=== PATIENT | male | born 1975 | race Caucasian/White ===

== ENCOUNTER 2023-07-04 08:45 | Emergency (ER) | payer OTHER, SELFPAY ==
[2023-07-04 08:51] VITALS: BP 164/100; PULSE 67; TEMP 36.6; O2SAT 99; BMI 27.1
--- NOTE | 2023-07-04 09:19 | CT_ITS ---
The [address] [address] Patient Name: ADRIEL HUSSEIN MRN: [id number] date: 1975 Sex: M Assigned Patient Location: ER Current Patient Location: ER Accession/Order Number: [id number] Exam Date: 07/04/2023 09:27 Report Date: 07/04/2023 09:49 At the request of: TATIANA BERKOWITZ Procedure: CT head/brain wo con EXAM: CT head/brain wo con HISTORY: Right facial paresthesia, partial right facial weakness COMPARISON: None. TECHNIQUE: Contiguous transaxial images were obtained from skull base to vertex without administration of intravenous contrast. Dose reduction: mA and/or kV are were adjusted by automated exposure control software based upon patients height and weight. FINDINGS: There is no focal scalp soft tissue swelling or acute calvarial fracture. The visualized globes and orbits are grossly normal. Visualized paranasal sinuses are clear. Bilateral mastoid air cells are clear. The ventricles and sulci are normal and symmetric bilaterally. There is no intraparenchymal hemorrhage, extraaxial fluid collection, mass lesion, or acute large territory ischemia by noncontrast CT. CT/CT head/brain wo con IMPRESSION: 1. No acute intracranial hemorrhage or acute large territory ischemia by noncontrast CT. If the patient has a focal neurologic deficit or there is clinical suspicion for acute cerebrovascular accident, brain MRI would be recommended for further evaluation. Electronically authenticated by: MIGUEL MARSHALL Date: 07/04/2023 09:49
--- NOTE | 2023-07-04 09:20 | ED_ITS ---
HPI - Neuro Symptoms/Deficit General Chief Complaint: Ear Stated Complaint: RIGHT EAR PAIM, FACIAL NUMBNESS Time Seen by Provider: 07/04/23 08:55 Source: patient Mode of arrival: walk-in History of Present Illness HPI Narrative: 3 days ago the patient developed slight difficulty winking with the right eye and noted that his smile was asymmetric on the right. He also developed increased tearing of the right eye. he admitted to some pain to the right ear - mostly to the tragus. he also had some decreased sensation - numbness in the right jaw. His brother had Almanzar's palsy in the past and the patient is concerned that he might have it now. No recent injury or illness. No fever or chills. No URI symptoms. Related Data Previous Rx's ?Medication ?Instructions ?Recorded acyclovir 400 mg tablet 400 mg PO Q4H #7 tabs 07/04/23 prednisone 20 mg tablet 40 mg (2 x 20 mg) PO DAILY 7 days 07/04/23 #14 tabs Allergies Allergy/AdvReac Type Severity Reaction Status Date / Time acetaminophen Allergy Unknown Verified 07/04/23 08:59 codeine Allergy Unknown Verified 07/04/23 08:59 hydrocodone [From [place]] Allergy Unknown Verified 07/04/23 08:59 NSAIDS (Non-Steroidal Allergy Unknown Verified 07/04/23 08:59 Anti-Inflamma morphine AdvReac Unknown Verified 07/04/23 08:59 oxycodone [From Percocet] AdvReac Unknown Verified 07/04/23 08:59 Exam Narrative Exam Narrative: Nurses notes and vital signs reviewed and patient is not hypoxic. afebrile General: Well-appearing and in no apparent distress. Skin: Warm, dry, no pallor noted. No rash to face or neck. Head: Normocephalic, atraumatic. There is very slight deficit when the patient wrinkles the forehead and smiles - slight asymmetry on the right. Neck: Supple, non-tender. Eye: Pupils are equal, round and EOMI. No scleral icterus. Ears, Nose, Mouth, and Throat: TM are clear, no posterior oropharynx erythema or nasal mucosal hypertrophy, uvula is mid-line Oral mucosa is moist Cardiovascular: Regular Rate and Rhythm without murmur, gallop or rub. Respiratory: No accessory muscle use or respiratory distress. Lungs are clear to auscultation, no wheezing, rales or rhonchi Musculoskeletal: normal ROM Neurological: A&O x4. No cranial nerve dysfunction observed. No truncal ataxia. Moves all extremities. Sensation intact. Psychiatric: Cooperative and interactive. Normal mood and affect. Constitutional Vital Signs, click to edit/add: Last Vital Signs Temp 98 F 07/04/23 08:51 Pulse 67 07/04/23 08:51 Resp 16 07/04/23 08:51 BP 164/100 H 07/04/23 08:51 Pulse Ox 99 07/04/23 08:51 O2 Del Method Room Air 07/04/23 08:51 Course Vital Signs Vital signs: Vital Signs Temperature 98 F 07/04/23 08:51 Pulse Rate 67 07/04/23 08:51 Respiratory Rate 16 07/04/23 08:51 Blood Pressure 164/100 H 07/04/23 08:51 Pulse Oximetry 99 07/04/23 08:51 Oxygen Delivery Method Room Air 07/04/23 08:51 Temperature 98 F 07/04/23 08:51 Pulse Rate 67 07/04/23 08:51 Respiratory Rate 16 07/04/23 08:51 Blood Pressure 164/100 H 07/04/23 08:51 Pulse Oximetry 99 07/04/23 08:51 Oxygen Delivery Method Room Air 07/04/23 08:51 MDM - Neuro Symptoms/Deficit MDM Narrative Medical decision making narrative: 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 He was sent for noncontrast CT scan of the brain. Head CT did not reveal tumor, mass or other worrisome pathology. Patient discharged home with prescription for acyclovir and prednisone. PCP follow up recommended. ED return for any worsening. Imaging Data CT scan - head: Radiologist's impression: ITS Impressions Head CT 07/04/23 09:19 IMPRESSION: 1. No acute intracranial hemorrhage or acute large territory ischemia by noncontrast CT. If the patient has a focal neurologic deficit or there is clinical suspicion for acute cerebrovascular accident, brain MRI would be recommended for further evaluation. Electronically authenticated by: MIGUEL MARSHALL Date: 07/04/2023 09:49 Discharge Plan Discharge Stand Alone Forms: Portal Instructions Chief Complaint: Ear Clinical Impression: Almanzar's palsy Patient Disposition: Home, Self-Care Time of Disposition Decision: 09:55 Prescriptions / Home Meds: New acyclovir 400 mg tablet 400 mg PO Q4H Qty: 7 0RF Rx Instructions: while awake; give 5 doses in 24 hours prednisone 20 mg tablet 40 mg PO DAILY 7 Days Qty: 14 0RF Print Language: Brazilian Instructions: Almanzar Palsy (ED) Referrals: MARYCHUY HERRERA [Primary Care Provider] - 1 week
== END 2023-07-04 10:08 | disposition home or self-care (01) ==
PROVIDERS: Emergency Provider Emergency Medicine; PCP Family Medicine
DX: G51.0 Bell's palsy (principal)
CPT/HCPCS: 70450; 99284

== ENCOUNTER 2025-02-23 04:34 | Emergency (ER) | payer OTHER, SELFPAY ==
[2025-02-23 04:37] VITALS: BP 168/96; PULSE 57; TEMP 36.6; O2SAT 98; BMI 25.8
--- NOTE | 2025-02-23 04:43 | ED.ALLEREA1 ---
HPI - Allergic Reaction General Chief complaint: Allergic Reaction Stated complaint: ALLERGIC REACTION Time Seen by Provider: 02/23/25 04:41 Source: patient Mode of arrival: walk-in Limitations: no limitations History of Present Illness HPI narrative: woke up with swollen lip. no swelling of his tongue or throat. neg dyspnea. states similar allergic reactions of his lip in the past. Takes Norvasc for HTN. No rash or itching Related Data Home Medications ?Medication ?Instructions ?Recorded ?Confirmed amlodipine 10 mg tablet mg 02/23/25 Allergies Allergy/AdvReac Type Severity Reaction Status Date / Time acetaminophen Allergy Unknown Unknown Verified 02/23/25 04:42 codeine Allergy Unknown Unknown Verified 02/23/25 04:42 hydrocodone (From [place]) Allergy Unknown Unknown Verified 02/23/25 04:42 NSAIDS (Non-Steroidal Allergy Unknown Unknown Verified 02/23/25 04:42 Anti-Inflamma morphine AdvReac Unknown Unknown Verified 02/23/25 04:42 oxycodone (From Percocet) AdvReac Unknown Unknown Verified 02/23/25 04:42 Review of Systems ROS Status of ROS 10 or more systems reviewed and unremarkable except as noted in history and below PFSH PFSH Social History Little interest or pleasure in doing things: not at all Feeling down, depressed, or hopeless: not at all Exam Constitutional Vital Signs, click to edit/add: Last Vital Signs Temp 97.8 F 02/23/25 04:37 Pulse 57 L 02/23/25 04:37 Resp 18 02/23/25 04:37 BP 168/96 H 02/23/25 04:37 Pulse Ox 98 02/23/25 04:37 O2 Del Method Room Air 02/23/25 04:37 Common normals: no apparent distress, average body habitus, oriented x3, no limitations, healthy appearing, alert and well nourished [facility] Common normals: normocephalic and head/scalp atraumatic Face and sinus images:  1. edema of lower lip Mouth: oral and palatal mucosa normal and tongue normal Throat: posterior oropharynx normal Eye Common normals: PERRL, EOMs intact bilaterally and conjunctivae normal Respiratory Common normals: normal respiratory effort, no retractions, no use of accessory muscles and clear to auscultation bilaterally Cardio Common normals: regular rate, regular rhythm, S1 normal heart sound and S2 normal heart sound Extremity Common normals: normal to inspection and full ROM Neuro Common normals: oriented x3, CN's II-XII intact bilaterally, moves all extremities and no focal motor deficits Psych Appearance: grossly normal Course Vital Signs Vital signs: Vital Signs Temperature 97.8 F 02/23/25 04:37 Pulse Rate 57 L 02/23/25 04:37 Respiratory Rate 18 02/23/25 04:37 Blood Pressure 168/96 H 02/23/25 04:37 Pulse Oximetry 98 02/23/25 04:37 Oxygen Delivery Method Room Air 02/23/25 04:37 Temperature 97.8 F 02/23/25 04:37 Pulse Rate 57 L 02/23/25 04:37 Respiratory Rate 18 02/23/25 04:37 Blood Pressure 168/96 H 02/23/25 04:37 Pulse Oximetry 98 02/23/25 04:37 Oxygen Delivery Method Room Air 02/23/25 04:37 MDM - Allergic Reaction MDM Narrative Medical decision making narrative: presents with swelling of his lower lip. Similar episodes in the past which he related to opiates. Takes norvasc for hypertension. Exam with edema of his lower lip. No other abnormalities. Treated with solumedrol, pepcid and benadryl. Observed in the ER and the swelling has decreased but not resolved. He is improved. No other symptoms. Will plan discharge home with a prescription for Epi pen and prednisone. He takes tanvi daily and is to continue this Discharge Plan Discharge Chief Complaint: Allergic Reaction Clinical Impression: Angioedema, Allergic reaction Patient Disposition: Home, Self-Care Prescriptions / Home Meds: No Action amlodipine 10 mg tablet Print Language: Albanian Instructions: Angioedema (ED) Additional Instructions: follow up with your doctor this week for recheck. Return if any worsening Referrals: MARYCHUY HERRERA [Primary Care Provider, Family Practice] - 1 week
[2025-02-23] MEDS: DIPHENHYDRAMINE HCL 50 MG/ML VIAL 25 MG IVP (04:55)
[2025-02-23] MEDS: METHYLPREDNISOLONE SOD SUCC PF 125 MG/2 ML VIAL IVP (04:56)
[2025-02-23] MEDS: FAMOTIDINE/PF 20 MG/2 ML VIAL IV (04:57)
[2025-02-23 05:11] LABS: Hematocrit 45.2 % (42.0-54.0); Hemoglobin 15.5 g/dL (14.0-18.0); Immature Granulocytes Abs Auto 0.01 10^3/uL (0.00-0.03); Immature Granulocytes Pct Auto 0.2 % (0.0-0.5); Lymphocytes Absolute Auto 1.2 10^3/uL (1.2-3.8); Mean Corpuscular HGB Conc 34.3 g/dL (29.9-35.2); Mean Corpuscular Hemoglobin 30.1 pg (25.9-34.0); Mean Corpuscular Volume 87.8 fL (80.0-94.0); Platelet Count 214 10^3/uL (150-450); Red Blood Count 5.15 10^6/uL (4.70-6.10); White Blood Count 4.6 10^3/uL (4.0-11.0)
[2025-02-23 05:19] LABS: Anion Gap 13.8; Blood Urea Nitrogen 9.0 mg/dL (7.0-18.0); Calcium 8.9 mg/dL (8.5-10.1); Carbon Dioxide 30.3 mmol/L (21.0-32.0); Chloride 103 mmol/L (98-107); Estimated GFR (African America >60 (>=60 mL/min/1.73m^2); Estimated GFR (Non-African Ame >60 (>=60 mL/min/1.73m^2); Glucose 106 mg/dL (74-106); Potassium 4.1 mmol/L (3.5-5.1); Sodium 143 mmol/L (136-145)
--- OUTSIDE RECORDS SUMMARY | 2025-02-23 05:46 | XMS_ITS | Clinical Summary ---
Author Organization [facility] Address [id number] [address] [place] [address] Care Team Providers Care Bail Bond Agent Name Role Phone González Mancia MD Primary Care Provider [phone] Allergies Active AllergyReactionsCriticalityNoted DateCommentsAcetaminophenAngioedemaHigh 06/02/2018 Facial swelling AspirinFacial XwkjyaesNvsc33/19/8810BjqwfhxbnuVfzixb09/01/2024 Other Reaction(s): swollen lip Hljfuk4804/02/20228062EhluifgiuWgpdmpshlqFgsu72/19/2019Nsaids (Non-Steroidal Anti- Inflammatory Drug)DzcmdeljrxVjvc26/19/2019 Medications MedicationSigDispense QuantityRefillsLast FilledStart DateEnd DateStatus fluticasone propionate (CUTIVATE) 0.05 % cream Apply topically as needed.Active EPINEPHrine (EPIPEN) 0.3 mg/0.3 mL auto-injector Inject 0.3 mL (0.3 mg total) into the appropriate muscle as needed (anaphylaxis) for up to 1 dose. 1 each 06/03/2021ctive fexofenadine HCl (EDUARDO ORAL) Take 1 tablet by mouth in the morning.Active sildenafiL (VIAGRA) 50 mg tablet Take 45 mg by mouth daily as needed for erectile dysfunction.Active hydrocortisone (HYTONE) 2.5 % cream 11/26/2023ctive predniSONE (DELTASONE) 20 mg tablet Take 1 tablet (20 mg total) by mouth in the morning and 1 tablet (20 mg total) before bedtime. 14 tablet 01/14/2024ctive traMADol ER (ULTRAM-ER) 100 mg 24 hr tablet Take 1 tablet (100 mg total) by mouth daily as needed for pain.10/31/2024Active amLODIPine (NORVASC) 10 mg tablet Take 1 tablet (10 mg total) by mouth in the morning. 30 tablet 1105Active Active Problems ProblemNoted DateDiagnosed DateVenous insufficiency of both lower extremities 02/03/2024Varicose veins of right lower extremity with ypkyawzckkda95/06/2024 Okcubv7204/18/20224659Yhdbvzbjbvjo93/08/2023 Immunizations No known immunizations Family History Medical HistoryRelationNameCommentsHeart diseaseFatherJames MadellDepression MotherMary HowellHypertensionMotherMary HowellAnesthesia problemsNeg HxRelation NameStatusCommentsFatherJames MadellDeceasedMotherMary HowellAlive Social History Tobacco UseTypesPacks/DayYears UsedDateSmoking Tobacco: NeverSmokeless Tobacco: Never Tobacco Cessation:Counseling Given: Not Answered Comments:Tried in my early 20's, decided they werent for me Alcohol UseStandard Drinks/WeekCommentsNot Currently0 (1 standard drink = 0.6 oz pure alcohol)ocassionalOverall Financial Resource Strain (CARDIA)AnswerDate RecordedHow hard is it for you to pay for the very basics like food, housing, medical care, and heating?Not hard at all07/10/2023HQ-2AnswerDate RecordedTotal Ghyyp319PRAPARE - TransportationAnswerDate RecordedIn the past 12 months, has lack of transportation kept you from medical appointments or from getting medications?No07/10/2023In the past 12 months, has lack of transportation kept you from meetings, work, or from getting things needed for daily living?No07/10/2023Housing InstabilityAnswerDate RecordedAre you worried or concerned that in the next two months you may not have stable housing that you own, rent or stay in as a part of a household?No07/10/2023hildcareAnswer Date InfddloqFtxsbwmzpYkfufun82/12/2019EmploymentAnswerDate RecordedEmployment Ashzsmd8708/20/2018Hunger ScreeningAnswerDate RecordedWithin the past 12 months we worried whether our food would run out before we got money to buy more.Never True06/18/2025Within the past 12 months the food we bought just didn't last and we didn't have money to get more.Never True08/26/2024Purpose - LifeAnswerDate RecordedPurpose and direction in zurnNubmjdx64/11/2021ex and Gender Information ValueDate RecordedSex Assigned at QtdquAnlr98/01/2024 10:21 AM EDTLegal SexMale 10/14/2014 11:43 AM EDTGender WqorbomcKkrt34/01/2024 10:21 AM EDTSexual QxqrlxmtxlkMbmyvqhw35/01/2024 10:21 AM EDT Last Filed Vital Signs Vital SignReadingTime TakenCommentsBlood Gubpdqts186/80008/26/2024 10:30 AM EDT Opbcq1515/18/2025 10:10 AM SZSUkvafkagxsm74.2 ??C (97.2 ??F)01/27/2024 5:00 PM ESTRespiratory Hsxh547508/26/2024 10:10 AM EDTOxygen Ebyfyacxss59%01/27/2024 5:00 PM ESTInhaled Oxygen Concentration--Bnsenj27.2 kg (190 lb)08/26/2024 10:10 AM KSLPzqynp566.3 cm (5' 9 )08/26/2024 10:10 AM EDTBody Mass Index28.0608/26/2024 10:10 AM EDT Plan of Treatment DateTypeDepartmentCare Team (Latest Contact Info)Nvmuutlvpnx66/17/2025 3:30 PM ESTOffice Visit [facility] [address] [place] [phone] González Mancia MD [address] [place] [phone] 08/30/2025 8:30 AM EDTOffice Visit [facility] [address] [place] [phone] González Mancia MD [address] [place] [address] [phone] Health MaintenanceDue DateLast DoneCommentsAdult BMI Follow Up Plan12/22/1991 DTaP,Tdap and Td Vaccines (1 - Tdap)1992Zoster (Shingles) Vaccine (1 of 2) 12/22/2023Influenza Hxmefpx1011/09/2024dult BMI Earfasfib94/ Depression Lsdaisztw38/Tobacco Bxupbfece47 Wobwturvgyd00/12/203408/02/2024, 10/21/2023 Medical Devices ImplantedTypeAreaManufacturerDevice IdentifierShelf Expiration DateModel / Serial / LotMesh 3.3x2.3mm Plstr Clgn Symbotex 9cm Comp Mfl Babsr Flm - Sn/A - [id number] Implanted:Qty: 1 on 01/07/2024 by Harjeet Smith DO at [facility]02/07/2027SYM9 / N/A / [id number] Procedures Procedure NamePriorityDate/TimeAssociated DiagnosisCommentsPROVATION COLONOSCOPY Vynqjpf3210/21/2023 6:33 AM EDT from Last 3 Months or Most Recently Relevant to Health Maintenance Results * Colonoscopy Report (10/21/2023 6:33 AM EDT)Specimen (Source)Anatomical Location / LateralityCollection Method / VolumeCollection TimeReceived Time Narrative SYSTEMGENERATED, DOCUMENTATION - 10/21/2023 6:33 AM EDT This order has been auto-finalized for image and report archival in PACs. *For full report details, please reach out to your physician. ??This image is visible to you in MyChart.* Authorizing ProviderResult TypeResult StatusMicalyce Smith DOIMG OR IMG ORDERABLESFinal Result from Last 3 Months or Most Recently Relevant to Health Maintenance [place] [address] [place] [address] Care Teams Team MemberRelationshipSpecialtyStart DateEnd Date González Mancia MD [address] [place] [address] PCP - GeneralInternal Medicine08/26/24
--- OUTSIDE RECORDS SUMMARY | 2025-02-23 05:47 | XMS_ITS | Clinical Summary ---
Author Organization [facility] Address [address] [place] [address] Care Team Providers Care Collision Worker Name Role Phone Татьяна Boone DO Primary Care Provider [phone] Allergies Active AllergyReactionsCriticalityNoted DateCommentsAcetaminophenAnaphylaxis, VpydyvaoXwiy10/25/2019 Facial swelling Azotgqw0405/27/20187833Kqjkzwvxmf42/01/2024 Other Reaction(s): swollen lip Liqaym2104/02/20228028Ickckwolt71/19/9885Yozayu43/01/2024 Medications MedicationSigDispense QuantityRefillsLast FilledStart DateEnd DateStatus fexofenadine ODT (Nadia ODT) 30 MG disintegrating tablet Active EPINEPHrine (Epipen-JR) 0.15 MG/0.3ML injection syringe Active fluticasone (Cutivate) 0.05 % cream Apply topicallyActive hydrocortisone 2.5 % cream Indications:Other rosaceaApply topically 2 (two) times a day as needed (Rash) To face 60 g 4Active Active Problems No known active problems Social History Tobacco UseTypesPacks/DayYears UsedDateSmoking Tobacco: Unknown Tobacco Cessation:Counseling Given: Not Answered Sex and Gender InformationValueDate RecordedSex Assigned at BirthNot on file Legal HqaAlbz1805/23/2022 7:18 PM EDTGender VnrjhuisVjzy48/15/2023 7:18 PM EDT Sexual OrientationNot on file Last Filed Vital Signs Vital SignReadingTime TakenCommentsBlood Vhhggpyl081/6412 12:00 PM EST Pulse--Temperature--Respiratory Rate--Oxygen Saturation--Inhaled Oxygen Concentration--Csxtuf92.5 kg (193 lb)03/09/2020 12:00 PM LUILtmfvi629.3 cm (5' 11 )04/16/2022 12:00 PM ESTBody Mass Index26.9203/09/2020 12:00 PM EST Plan of Treatment Not on file Insurance Care Teams Team MemberRelationshipSpecialtyStart DateEnd Date Татьяна Boone DO PCP - GeneralFamily Medicine07/17/22
--- OUTSIDE RECORDS SUMMARY | 2025-02-23 05:47 | XMS_ITS | Clinical Summary ---
Author Organization [facility] Address [address], [address] [place] [address] Care Team Providers Care Steward/Stewardess Smoke Room Name Role Phone Unavailable Primary Care Provider Unavailabl e Allergies Active AllergyReactionsCriticalityNoted DateCommentsAcetaminophenSwelling 06/02/2018 Facial swelling Clbpaho8305/27/20185597Emvminqgv15/19/2810Upxzurul45/19/2019 Medications MedicationSigDispense QuantityRefillsLast FilledStart DateEnd DateStatus fluticasone (CUTIVATE) 0.05 % cream Apply topically every other day Apply topically 2 times daily as needed.Active famotidine (PEPCID) 20 MG tablet Take 20 mg by mouth 2 times dailyActive diphenhydrAMINE (BENADRYL) 50 MG capsule Take 50 mg by mouth01/03/2019Active predniSONE (DELTASONE) 20 MG tablet 01/03/2019Active amLODIPine (NORVASC) 5 MG tablet Take 5 mg by mouth daily12/15/2019Active Active Problems ProblemNoted DateDiagnosed DateRenal /25/2019Ureteral calculus 05/27/2018 Family History Medical HistoryRelationNameCommentsHeart DiseaseFatherNo Known ProblemsMother RelationNameStatusCommentsFatherDeceasedMotherAlive Social History Tobacco UseTypesPacks/DayYears UsedDateSmoking Tobacco: NeverSmokeless Tobacco: NeverAlcohol UseStandard Drinks/WeekCommentsYes0 (1 standard drink = 0.6 oz pure alcohol)rarelySex and Gender InformationValueDate RecordedSex Assigned at Not on fileLegal SzzYvnn6704/20/2012 9:14 PM ESTGender IdentityNot on fileSexual OrientationNot on file Last Filed Vital Signs Vital SignReadingTime TakenCommentsBlood Ttcdywxd089/9011 3:58 PM EST Asrkp894301/21/2019 4:10 PM VFZSdbpziwvafu73.8 ??C (98.2 ??F)01/18/2021 3:58 PM ESTRespiratory Yuki500706/03/2018 9:30 AM EDTOxygen Dawyccttna32%06/03/2018 9:30 AM EDTInhaled Oxygen Concentration--Qimdik14.2 kg (201 lb)01/18/2021 3:58 PM EST Bcanue126.3 cm (5' 11 )01/18/2021 3:58 PM ESTBody Mass Index28.03103/20/2020 3:58 PM EST Plan of Treatment Not on file Medical Devices ImplantedTypeAreaManufacturerDevice IdentifierShelf Expiration DateModel / Serial / LotStent Uret Hydrpl Coat W/O [id number] Implanted:Qty: 1 on 05/27/2018 [facility]:UrologicalLeft: UreterBOSTON SCI: INTERVENTIONAL CARDIO-PMM 01/21/[id number] / / [id number] Insurance Advance Directives * Full Code (Latest Code Status on File) Date ActivatedDate InactivatedComments06/03/2018 5:46 AM06/03/2018 11:57 AM * Full Code Date ActivatedDate InactivatedComments05/27/2018 11:56 AM05/27/2018 8:37 PM
[2025-02-23 06:36] VITALS: BP 150/77; PULSE 89; O2SAT 97
== END 2025-02-23 06:40 | disposition home or self-care (01) ==
PROVIDERS: Emergency Provider Internal Medicine; PCP Family Medicine
DX: T78.3XXA Angioneurotic edema, initial encounter (principal)
CPT/HCPCS: 36415; 80048; 85025; 96374; 96375; 99284; J1200; J2919; J3490